=== PATIENT | female | born 1980 | race African-American/Black ===

== ENCOUNTER 2019-02-12 16:46 | Emergency (ER) | payer OTHER ==
[2019-02-12 16:55] VITALS: BP 149/96
--- OUTSIDE RECORDS SUMMARY | 2019-02-12 16:55 | XMS REPORT | Continuity of Care Document ---
:1980 External Reference #:[id number] Author Name Joan Atkinson MD (transmitted by agent of provider Jennifer Palacios) Address [address], [address] [place] [id number] Care Team Providers Name Role Phone Joan Atkinson M.D. 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 No Information Available Social History Type Date Description Comments Sex Unknown Tobacco Use Start: Unknown Never Smoked Cigarettes Smoking Status Reviewed: 12/22/18 Never Smoked Cigarettes Tobacco Use Start: Unknown Patient has never smoked Allergies, Adverse Reactions, Alerts Description No Information Available Medications Active Medications SIG Qnty Indications Ordering Date Provider Automatic Blood Pressure 1 adult cuff 1units I10 Joan Atkinson MD 2018 Monitor w/unit for Kit upper arm Hydrochlorothiazide 1 by mouth Unknown 25mg Tablets every day Hornell-28 1 pill daily Unknown 0.15-30mg-mcg Tablets Immunizations Description No Information Available Vital Signs Date Vital Result Comment 12/22/2018 9:53am Height 65.25 inches 5'5.25" Weight 139.50 lb Heart Rate 102 /min BP Systolic Sitting 138 mmHg Rue reg cuff BP Diastolic Sitting 94 mmHg Rue reg cuff O2 % BldC Oximetry 98 % BMI (Body Mass Index) 23.0 kg/m2 Results Description No Information Available Procedures Date Code Description Status 12/22/2018 96141 EKG Tracing & Interpretation Completed Medical Devices Description No Information Available Encounters Description No Information Available Assessments Date Code Description Provider 12/22/2018 I10 Essential (primary) hypertension Joan Atkinson MD 12/22/2018 L65.9 Nonscarring hair loss, unspecified Joan Atkinson MD 12/22/2018 E04.1 Nontoxic single thyroid nodule Joan Atkinson MD 12/22/2018 R42 Dizziness and giddiness Joan Atkinson MD Plan of Treatment Future Appointment(s):01/24/2019 8:40 am - Joan [facility] MD [facility] - Joan Atkinson MDI10 Essential (primary) hypertensionNew Medication:Automatic Blood Pressure Monitor - 1 adult cuff w/ unit for upper armComments:I encourage you to check your blood pressure 2 x/week , at different times of the day and keep a log for our review at the next visitFollow up:1 moL65.9 Nonscarring hair loss, unspecifiedComments:I will send you a letter with results of all normal, and we will contact you to discuss any akemdtjxaZ05.1 Nontoxic single thyroid [id number] Dizziness and giddinessComments :To further evaluate your complaint I am ordering blood work. Your EKG was normal except fpr slightlyfast rhythm (sinus tachycardia) Functional Status Description No Information Available Mental Status Description No Information Available Referrals Description No Information Available
--- OUTSIDE RECORDS SUMMARY | 2019-02-12 16:55 | XMS REPORT | Continuity of Care Document ---
:1980 External Reference #:[id number] Author Name Jeanie Mcnair N.P. (transmitted by agent of provider Cheyenne Valerio) Address [address], [place] [address] Care Team Providers Name Role Phone Joan Atkinson M.D. 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 Problems Description No Information Available Social History Type Date Description Comments Sex Unknown Tobacco Use Start: Unknown Never Smoked Cigarettes Smoking Status Reviewed: 02/05/19 Never Smoked Cigarettes ETOH Use Currently consumes 2 drinks a week alcohol Tobacco Use Start: Unknown Patient has never smoked Recreational Drug Use Denies Drug Use Exercise Type/Frequency Exercises regularly Allergies, Adverse Reactions, Alerts Description No Known Drug Allergies Medications Active Medications SIG Qnty Indications Ordering Date Provider Amlodipine Besylate 1 by mouth 30tabs I10 Joan Atkinson MD 01/24/2019 5mg Tablets every day Automatic Blood Pressure 1 adult cuff 1units I10 Joan Atkinson MD 2018 Monitor w/unit for Kit upper arm Hydrochlorothiazide 1 by mouth 90tabs Joan Atkinson MD 25mg Tablets every day Squires-28 1 po by mouth 28tabs Joan Atkinson MD 0.15-30mg-mcg Tablets daily Immunizations Description No Information Available Vital Signs Date Vital Result Comment 02/05/2019 4:15pm Height 65.25 inches 5'5.25" Weight 137.00 lb Heart Rate 85 /min BP Systolic 140 mmHg BP Diastolic 91 mmHg Body Temperature 97.9 F O2 % BldC Oximetry 99 % BMI (Body Mass Index) 22.6 kg/m2 01/24/2019 8:41am Height 65.25 inches 5'5.25" Weight 138.00 lb Heart Rate 107 /min BP Systolic 130 mmHg BP Diastolic 90 mmHg O2 % BldC Oximetry 97 % BMI (Body Mass Index) 22.8 kg/m2 Results Test Date Facility Test Result H/L Range Note Laboratory test 12/22/2018 [facility] Ferritin 33.0 ng/mL Normal 11-[address] [place] [address] [phone] Thyroid Panel 12/22/2018 [facility] Free T4 (Free 0.73 ng/dL Normal 0.61-1.12 DRIVE Thyroxine) [place] [address] [phone] Thyroxine 7.02 g/dL Normal 6.09-12.23 TSH (Thyroid Stim Horm) 1.55 mcIU/mL Normal 0.34-5.60 CBC No Diff 12/22/2018 [facility] White Blood 4.4 10^3/uL Normal 3.5-10.8 [place] [address] [phone] Red Blood Count 4.86 10^6/uL Normal 3.70-4.87 Hemoglobin 13.8 g/dL Normal 12.0-16.0 Hematocrit 41 % Normal 35-47 Mean Corpuscular Volume 83 fL Normal 80-97 Mean Corpuscular Hemoglobin 29 pg Normal 27-31 Mean Corpuscular HGB Conc 34 g/dL Normal 31-36 Red Cell Distribution Width 14 % Normal 10-15 Platelet Count 168 10^3/uL Normal 150-450 Mean Platelet Volume 10.3 fL Normal 7.4-10.4 Comp Metabolic 12/22/2018 [facility] Sodium 139 mmol/L Normal 135-[address] [place] [address] [phone] Potassium 3.5 mmol/L Normal 3.5-5.0 Chloride 104 mmol/L Normal 101-111 Co2 Carbon Dioxide 28 mmol/L Normal 22-32 Anion Gap 7 mmol/L Normal 2-11 Glucose 113 mg/dL High 70-100 Blood Urea Nitrogen 13 mg/dL Normal 6-24 Creatinine 0.97 mg/dL High 0.51-0.95 BUN/Creatinine Ratio 13.4 Normal 8-20 Calcium 9.3 mg/dL Normal 8.6-10.3 Total Protein 7.2 g/dL Normal 6.4-8.9 Albumin 4.3 g/dL Normal 3.2-5.2 Globulin 2.9 g/dL Normal 2-4 Albumin/Globulin Ratio 1.5 Normal 1-3 Total Bilirubin 0.40 mg/dL Normal 0.2-1.0 Alkaline Phosphatase 27 U/L Low 34-104 Alt 12 U/L Normal 7-52 Ast 13 U/L Normal 13-39 Egfr Non- 65.0 >60 Egfr 78.6 >60 1 Urinalysis Profile 12/22/2018 [facility] Urine Color Yellow [address] [place] [address] [phone] Urine Appearance Cloudy Urine Specific [place] 1.012 Normal 1.010-1.030 Urine pH 6.0 Normal 5-9 Urine Urobilinogen Negative Negative Urine Ketones Negative Negative Urine Protein Negative Negative Urine Leukocytes Negative Negative Urine Blood Negative Negative Urine Nitrite Negative Negative Urine Bilirubin Negative Negative Urine Glucose Negative Negative 1 Because ethnic data is not always readily available, this report includes an eGFR for both -Americans and non- Americans. The National Kidney Disease Education Program (NKDEP) does not endorse the use of the MDRD equation for patients that are not between the ages of 18 and 70, are , have extremes of body size, muscle mass, or nutritional status, or are non- or non-. According to the National Kidney Foundation, irrespective of diagnosis, the stage of the disease is based on the level of kidney function: Stage Description GFR(mL/min/1.73 m(2)) 1 Kidney damage with normal or decreased GFR 90 2 Kidney damage with mild decrease in GFR 60-89 3 Moderate decrease in GFR 30-59 4 Severe decrease in GFR 15-29 5 Kidney failure <15 (or dialysis) Procedures Date Code Description Status 12/22/2018 51730 EKG Tracing & Interpretation Completed Medical Devices Description No Information Available Encounters Type Date Location Provider Dx Diagnosis Office Visit 01/24/2019 Jarvis Atkinson MD I10 Essential ( primary) 8:40a Medicine - [facility] hypertension E04.1 Nontoxic single thyroid nodule Office Visit 12/22/2018 10:00a Jarvis Atkinson MD I10 Essential (primary) Medicine - [facility] hypertension L65.9 Nonscarring hair loss, unspecified E04.1 Nontoxic single thyroid nodule R42 Dizziness and giddiness R00.0 Tachycardia, unspecified Assessments Date Code Description Provider 02/05/2019 I10 Essential (primary) hypertension Jeanie Mcnair, N.P. 02/05/2019 R00.2 Palpitations Jeanie Mcnair N.P. 01/24/2019 I10 Essential (primary) hypertension Joan Atkinson MD 01/24/2019 E04.1 Nontoxic single thyroid nodule Joan Atkinson MD 12/22/2018 I10 Essential (primary) hypertension Joan Atkinson MD 12/22/2018 L65.9 Nonscarring hair loss, unspecified Joan Atkinson MD 12/22/2018 E04.1 Nontoxic single thyroid nodule Joan Atkinson MD 12/22/2018 R42 Dizziness and giddiness Joan Atkinson MD 12/22/2018 R00.0 Tachycardia, unspecified Joan Atkinson MD Plan of Treatment Future Appointment(s):08/01/2019 8:40 am - Joan Atkinson MD at [facility] Internal Medicine - [facility]02/26/2019 9:00 am - Nurse Visit A at [facility] Internal Medicine - [facility]02/05/2019 - Jeanie Mcnair N.Guillaume.I10 Essential (primary) hypertensionComments:For now, stay off the Hydrochlorothiazide. I have ordered blood work to be sure your potassium levelis in normal range and that you are not anemic.I would like you to check your blood pressure once daily, mix up the time of day.To get an accurate reading:Sit for 10 minutes, be sure both feet are on the ground, and have an empty bladder. The arm that you are checking needs to be at heart level and relaxed.I will check on you at the end of the week to see how your readings have been and we'll go fromthere.R00.2 Palpitations Functional Status Description No Information Available Mental Status Description No Information Available Referrals Refer to Reason for Referral Status Appt Date Angelic Crockett MD please evaluate pt for possible biopsy of multiple Sent large thyroid nodules [address] [place], [place] [address] [phone]
--- OUTSIDE RECORDS SUMMARY | 2019-02-12 16:55 | XMS REPORT | Continuity of Care Document ---
:1980 External Reference #:[id number] Author Name Joan Atkinson MD (transmitted by agent of provider Yadira Rivero) Address [address], [address] [place] [id number] Care Team Providers Name Role Phone Joan Atkinson M.D. 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 No Information Available Social History Type Date Description Comments Sex Unknown Tobacco Use Start: Unknown Never Smoked Cigarettes Smoking Status Reviewed: 01/24/19 Never Smoked Cigarettes ETOH Use Currently consumes [...] Joan Atkinson MD 25mg Tablets every day Marilu-28 1 po by mouth 28tabs Joan Atkinson MD 0.15-30mg-mcg Tablets daily Immunizations Description No Information Available Vital Signs Date Vital Result Comment 01/24/2019 8:41am Height 65.25 inches 5'5.25" Weight 138.00 lb Heart Rate 107 /min BP Systolic 130 mmHg BP Diastolic 90 mmHg O2 % BldC Oximetry 97 % BMI (Body Mass Index) 22.8 kg/m2 12/22/2018 9:53am Height 65.25 inches 5'5.25" Weight 139.50 lb Heart Rate 102 /min BP Systolic Sitting 138 mmHg Rue reg cuff BP Diastolic Sitting 94 mmHg Rue reg cuff O2 % BldC Oximetry 98 % BMI (Body Mass Index) 23.0 kg/m2 Results Test Date Facility Test Result H/L Range Note Laboratory test 12/22/2018 [facility] Ferritin 33.0 ng/mL Normal [address] [place] [address] [phone] Thyroid Panel 12/22/2018 [facility] Free T4 (Free 0.73 ng/dL Normal 0.61-1.12 DRIVE Thyroxine) [place] [address] [phone] Thyroxine 7.02 g/dL Normal 6.09-12.23 TSH (Thyroid Stim Horm) 1.55 mcIU/mL Normal 0.34-5.60 CBC No Diff 12/22/2018 [facility] White Blood 4.4 10^3/uL Normal 3.5-10.8 [place] [address] [phone] Red Blood Count 4.86 10^6/uL Normal 3.70-4.87 Hemoglobin 13.8 g/dL Normal 12.0-16.0 Hematocrit 41 % Normal 35-47 Mean Corpuscular Volume 83 fL Normal 80-97 Mean Corpuscular Hemoglobin 29 pg Normal 27-31 Mean Corpuscular HGB Conc 34 g/dL Normal 31-36 Red Cell Distribution Width 14 % Normal 10-15 Platelet Count 168 10^3/uL Normal 150-450 Mean Platelet Volume 10.3 fL Normal 7.4-10.4 Comp Metabolic 12/22/2018 [facility] Sodium 139 mmol/L Normal 135-[address] [place] [address] [phone] Potassium 3.5 mmol/L Normal 3.5-5.0 Chloride 104 [...] Egfr 78.6 >60 1 Urinalysis Profile 12/22/2018 [facility] Urine Color Yellow [address] [place] [address] [phone] Urine Appearance Cloudy Urine Specific [place] 1.012 Normal 1.010-1.030 Urine pH 6.0 Normal [...] dialysis) Procedures Date Code Description Status 12/22/2018 34651 EKG Tracing & Interpretation Completed Medical Devices Description No Information Available Encounters Type Date Location Provider Dx Diagnosis Office Visit 12/22/2018 [employer] [facility] Joan Atkinson MD I10 Essential ( primary) 10:00a Medicine - [facility] hypertension L65.9 Nonscarring hair loss, unspecified E04.1 Nontoxic single thyroid nodule R42 Dizziness and giddiness R00.0 Tachycardia, unspecified Assessments Date Code Description Provider 01/24/2019 I10 Essential (primary) hypertension Joan Atkinson [...] 8:40 am - Joan Atkinson MD at [facility] Internal Medicine - [facility]02/26/2019 9:00 am - Nurse Visit A at [facility] Internal Medicine - [facility]01/24/2019 - Joan Atkinson MDI10 Essential (primary) hypertensionNew Medication:Amlodipine Besylate 5 mg - 1 by mouth every dayComments:Your blood pressure is not at goal, therefore I am adding a new medication called amlodipine, to be taken with hydrochlorothiazide.Please return in 1 month for nurse visit to check the blood pressure is at goal on this new regimen. Then follow-up with me in 6 monthsFollow up:1 mo nurse visit BP check 6 mo HTNE04.1 Nontoxic single thyroid noduleReferral:Angelic Crockett MD, Surgery,General Functional Status Description No Information Available Mental Status Description No Information Available Referrals Refer to Dr Reason for Referral Status Appt Date Angelic Crockett MD please evaluate pt for possible biopsy of multiple Sent large thyroid nodules [address] [place], [place] [address] [phone]
--- NOTE | 2019-02-12 18:17 | UC ---
General HPI - HPI Summary HPI Summary: 39-year-old woman comes in with a chief complaint of panic attack. Patient reports that just prior to arrival she was at work when she was in a meeting when she felt anxious felt like everything was closing in and she had palpitations she felt short of breath. She left the meeting and then came here. Patient reports he's had multiple of these episodes since August 2018. She was living in [facility] in either August or September of this year and she had a similar episode after having an argument with her family. She reports that everything in the emergency department since Ryan Philip was related to her is normal. They gave her a single pill which helped relax her at that time. Shortly afterwards her and her moved here to [place]. In the last several months she's had several more of these episodes. She had one 3 days ago while at a meeting at work and her relates that she had an additional third episode within the last week. Patient reports she is going through a palpitation workup with her primary care doctor here in [place] and she's had a Holter monitor that was reported as normal is also had blood work that's been reported as normal. She is getting a thyroid biopsy scheduled for the next couple weeks due to a large thyroid gland. She reports she's been having sinus congestion that's been persistent and worsening for the last several months since she has been having some crusting in her eyes in the morning. No fevers or chills. Patient has been having headaches with these episodes. - History of Current Complaint Chief Complaint: UCDizziness Stated Complaint: DIZZINESS, LIGHTHEADED Time Seen by Provider: 02/12/19 17:24 Pain Intensity: 0 - Allergy/Home Medications Allergies/Adverse Reactions: Allergies Allergy/AdvReac Type Severity Reaction Status Date / Time No Known Allergies Allergy Verified 02/12/19 16:55 Home Medications: Home Medications amLODIPine TAB* [Norvasc 5 mg TAB*] 5 mg PO DAILY 02/12/19 [History Confirmed ] PMH/Surg Hx/FS Hx/Imm Hx Previously Healthy: Yes - ENLARGED THYROID - Surgical History Surgical History: Yes Surgery Procedure, Year, and Place: kidney stone, 2 c-sections - Family History Known Family History: Positive: Non-Contributory - Social History Alcohol Use: Weekly Substance Use Type: None Smoking Status (MU): Never Smoked Tobacco Review of Systems All Other Systems Reviewed And Are Negative: Yes Constitutional: Positive: Other - SEE HPI Skin: Positive: Negative Eyes: Positive: Drainage ENT: Positive: Nasal Discharge, Sinus Congestion Respiratory: Positive: Shortness Of Breath Cardiovascular: Positive: Palpitations Gastrointestinal: Positive: Negative Motor: Positive: Negative Neurovascular: Positive: Negative Musculoskeletal: Positive: Negative Neurological: Positive: Headache Psychological: Positive: Anxious Is Patient Immunocompromised?: No Physical Exam Triage Information Reviewed: Yes Appearance: No Pain Distress, Well-Nourished, Other: - Mildly anxious and occasionally tearful. Vital Signs: Initial Vital Signs Temp 99.6 F 02/12/19 16:51 Pulse 93 02/12/19 16:51 Resp 18 02/12/19 16:51 BP 149/96 02/12/19 16:51 Pulse Ox 100 02/12/19 16:51 Vital Signs Reviewed: Yes Eye Exam: Normal Eyes: Positive: Conjunctiva Clear ENT: Positive: Nasal congestion, TMs normal Neck: Positive: Supple, Other: - Enlarged thyroid gland anterior lower neck Respiratory: Positive: Lungs clear, Normal breath sounds, No respiratory distress Cardiovascular: Positive: RRR Musculoskeletal: Positive: Strength Intact, ROM Intact Neurological: Positive: Alert Psychological: Positive: Normal Response To Family, Age Appropriate Behavior Skin Exam: Normal Course/Dx - Course Course Of Treatment: In clinic initial temperature was 99.6 and then on recheck it was 100.2. With further discussion of symptoms we will treat for sinusitis with amoxicillin. She could also use saline nasal spray or Flonase nasal spray. For these recurrent episodes she is undergoing a workup with her primary care physician and she does have thyroid biopsy scheduled. EKG did not show any ischemic changes or irregular heartbeats. I did do a prescription for hydroxyzine to be used as needed and recommended that the patient follow-up with her regular physician tomorrow. I also recommended staying out of work until she feels improved. I did end up riding her 2 different work notes one to return to work on February 15, 2019 and the other to return to work on February 19, 2019 based on how she is feeling. Patient reevaluated if worse or any questions or concerns. - Diagnoses Provider Diagnosis: Heart palpitations, Anxiety, Sinusitis, Fever Discharge ED - Sign-Out/Discharge Documenting (check all that apply): Patient Departure All imaging exams completed and their final reports reviewed: No Studies - Discharge Plan Condition: Stable Disposition: HOME Prescriptions: Amoxicillin PO (*) [Amoxicillin 875 MG (*)] 875 mg PO BID #20 tab hydrOXYzine HCL TAB* [Atarax TAB 50 MG *] 50 mg PO QID PRN #20 tab PRN Reason: Anxiety Patient Education Materials: Heart Palpitations (ED), Sinusitis (ED), Fever in Adults (ED), Anxiety (ED) Forms: *Work Release Referrals: Joan Atkinson MD [Primary Care Provider] - Additional Instructions: FOLLOW UP WITH YOUR DOCTOR. GET RECHECKED SOONER IF YOUR CONDITION WORSENS OR ANY QUESTIONS OR CONCERNS. - Billing Disposition and Condition Condition: STABLE Disposition: Home
== END 2019-02-12 18:30 | disposition home or self-care (01) ==
LOC: UCEAST 16:46
DX: J32.9 Chronic sinusitis, unspecified (principal); F41.9 Anxiety disorder, unspecified; R50.9 Fever, unspecified; R00.2 Palpitations; R09.89 Other specified symptoms and signs involving the circulatory and respiratory systems; R51 Headache
CPT/HCPCS: 99212; G0463

== ENCOUNTER 2019-04-22 08:54 | Emergency (ER) | payer OTHER ==
--- OUTSIDE RECORDS SUMMARY | 2019-04-22 08:59 | XMS REPORT | Continuity of Care Document ---
:1980 External Reference #:[id number] Author Name Waqas Sawant NP (transmitted by agent of provider Jennifer Gonsalves) Address [address] [facility], [address] [place] [id number] Care Team Providers Name Role Phone Joan Atkinson M.D. - Family Medicine Care Team Information Nurse Companion Problems Active Problems Provider Date Essential hypertension Waqas Sawant NP Onset: 03/28/2019 Social History Type Date Description Comments Sex Unknown Tobacco Use Start: Unknown Never Smoked Cigarettes Smoking Status Reviewed: 03/28/19 Never Smoked Cigarettes ETOH Use Currently consumes 2 drinks a week alcohol Tobacco Use Start: Unknown Patient has never smoked Recreational Drug Use Denies Drug Use Exercise Type/Frequency Exercises regularly Allergies, Adverse Reactions, Alerts Description No Known Drug Allergies Medications Active Medications SIG Qnty Indications Ordering Provider Date Amlodipine Besylate 1 by mouth every 30tabs I10 Waqas Sawant NP 03/28/2019 day 10mg Tablets Alprazolam 1/2-1 tab by 20tabs F41.9 Waqas Sawant NP 03/28/2019 0.25mg mouth up to two Tablets times daily as needed for anxiety Fluticasone 2 sprays each 16units J30.89 Waqas Sawant NP 03/28/2019 Propionate nostril qd. 50mcg/Act Suspension Automatic Blood 1 adult cuff 1units I10 Joan Atkinson MD 12/22/2018 Pressure Monitor w/unit for upper Kit arm [place]-28 1 po by mouth 28tabs Joan Atkinson MD 0.15-30mg-mcg daily Tablets History Medications Amlodipine Besylate 11/2 by mouth 30tabs I10 Waqas Sawant NP 01/24/2019 - 5mg every day 03/28/2019 Tablets Immunizations Description No Information Available Vital Signs Date Vital Result Comment 03/28/2019 8:49am Height 67 inches 5'7" Weight 138.00 lb Heart Rate 88 /min BP Systolic 134 mmHg BP Diastolic 87 mmHg Body Temperature 97.9 F O2 % BldC Oximetry 98 % BMI (Body Mass Index) 21.6 kg/m2 02/26/2019 9:07am Heart Rate 101 /min BP Systolic Sitting 130 mmHg BP Diastolic Sitting 90 mmHg O2 % BldC Oximetry 99 % Results Test Acquired Date Facility Test Result H/L Range Note Cytology 02/26/2019 [facility] Cytology SEE RESULT 1 [employer] 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 [address] [place] [address] [phone] PDFReport SEE IMAGE Lipid Profile 02/26/2019 [facility] Triglycerides 86 mg/dL 2 (Trig/Chol/HDL) [address] [place] [address] [phone] Cholesterol 151 mg/dL 3 HDL Cholesterol 50.9 mg/dL 4 LDL Cholesterol 83 mg/dL 5 Order 02/07/2019 [facility] Holter Monitor <pending> [address] [place] [address] [phone] CBC Auto 02/05/2019 [facility] White Blood 5.7 10^3/uL Normal 3.5-[address] Count .8 [place] [address] [phone] Red Blood Count 4.87 10^6/uL Normal 3.70-4.87 Hemoglobin 13.4 g/dL Normal 12.0-16.0 Hematocrit 40 % Normal 35-47 Mean Corpuscular Volume 82 fL Normal 80-97 Mean Corpuscular Hemoglobin 28 pg Normal 27-31 Mean Corpuscular HGB Conc 33 g/dL Normal 31-36 Red Cell Distribution Width 14 % Normal 10-15 Platelet Count 149 10^3/uL Low 150-450 Mean Platelet Volume 10.4 fL Normal 7.4-10.4 Abs Neutrophils 2.6 10^3/uL Normal 1.5-7.7 Abs Lymphocytes 2.4 10^3/uL Normal 1.0-4.8 Abs Monocytes 0.4 10^3/uL Normal 0-0.8 Abs Eosinophils 0.3 10^3/uL Normal 0-0.6 Abs Basophils 0.1 10^3/uL Normal 0-0.2 Abs Nucleated RBC 0.0 10^3/uL Granulocyte % 45.5 % Lymphocyte % 42.6 % Monocyte % 6.4 % Eosinophil % 4.5 % Basophil % 1.0 % Nucleated Red Blood Cells % 0.3 Basic Metabolic 02/05/2019 [facility] Sodium 134 mmol/L Low 135-[address] [place] [address] [phone] Potassium 4.2 mmol/L Normal 3.5-5.0 Chloride 101 mmol/L Normal 101-111 Co2 Carbon Dioxide 26 mmol/L Normal 22-32 Anion Gap 7 mmol/L Normal 2-11 Glucose 84 mg/dL Normal 70-100 Blood Urea Nitrogen 12 mg/dL Normal 6-24 Creatinine 0.80 mg/dL Normal 0.51-0.95 BUN/Creatinine Ratio 15.0 Normal 8-20 Calcium 9.3 mg/dL Normal 8.6-10.3 Egfr Non- 80.7 >60 Egfr 97.7 >60 6 Laboratory test 12/22/2018 [facility] Ferritin 33.0 Normal 11- [address] ng/[place] [address] [phone] Thyroid Panel 12/22/2018 [facility] Free T4 0.73 Normal 0.61- 1.[address] (Free ng/[place] [address] Thyroxine) [phone] Thyroxine 7.02 g/dL Normal 6.09-12.23 TSH (Thyroid Stim Horm) 1.55 mcIU/mL Normal 0.34-5.60 CBC No Diff 12/22/2018 [facility] White Blood 4.4 10^3/uL Normal 3.5-10.[address] [place] [address] [phone] Red Blood Count 4.86 10^6/uL Normal 3.70-4.87 Hemoglobin 13.8 g/dL Normal 12.0-16.0 Hematocrit 41 % Normal 35-47 Mean Corpuscular Volume 83 fL Normal 80-97 Mean Corpuscular Hemoglobin 29 pg Normal 27-31 Mean Corpuscular HGB Conc 34 g/dL Normal 31-36 Red Cell Distribution Width 14 % Normal 10-15 Platelet Count 168 10^3/uL Normal 150-450 Mean Platelet Volume 10.3 fL Normal 7.4-10.4 Comp Metabolic 12/22/2018 [facility] Sodium 139 mmol/L Normal 135-145 Panel [address] [place] [address] [phone] Potassium 3.5 mmol/L Normal 3.5-5.0 Chloride 104 [...] Egfr Non- 65.0 >60 Egfr 78.6 >60 7 Urinalysis Profile 12/22/2018 [facility] Urine Color Yellow [address] [place] [address] [phone] Urine Appearance Cloudy Urine Specific [place] 1.012 Normal 1.010-1.030 Urine pH 6.0 Normal 5-9 Urine Urobilinogen Negative Negative Urine Ketones Negative Negative Urine Protein Negative Negative Urine Leukocytes Negative Negative Urine Blood Negative Negative Urine Nitrite Negative Negative Urine Bilirubin Negative Negative Urine Glucose Negative Negative 1 SEE RESULT BELOW Name: RAVI SALGADO Augustus : [address]: Angelic Crockett MD Acct: [id number] Unit: [id number] AGE: 39 Location: Re02/26/19 SEX: F Status: REG REF SPEC: [id number] CARLOS: 02/26/19-1305 [facility] DR: Angelic Crockett MD REQ: [id number] RECD: 02/26/19 STATUS: BISI SHERMAN DR: Alejo Iyer MD _ ORDERED: FNA-IMG GUID BX, CYTO ADEQ- P3 FINAL DIAGNOSIS 1. Thyroid, right, ultrasound guided fine needle aspiration: --Benign thyroid nodule, involutional type ([place] Class II). 2. Thyroid, left, ultrasound guided fine needle aspiration: --Benign thyroid nodule, involutional type ([place] Class II). 3. Thyroid, isthmus, ultrasound guided fine needle aspiration: --Benign thyroid nodule, involutional type ([place] Class II). 1. The specimen demonstrates moderate watery proteinaceous fluid, a moderate amount of benign appearing follicular epithelium arranged in uniform sheets, medium sized follicles and only occasional small groups. Abundant pigmented and non-pigmented macrophages are seen in the background. No features of papillary carcinoma are seen. In this clinical setting the risk of malignancy is less than 3%. Clinical management of this thyroid nodule should be based on clinical CONTINUED ON NEXT PAGE DEPARTMENT OF PATHOLOGY, [address] [place] [address] Aldo Morgan M.D. Director [facility] # [id number] and radiographic features as well as the above findings. 2. The specimen demonstrates abundant watery proteinaceous fluid, a modest amount of benign appearing follicular epithelium arranged in uniform sheets, medium sized follicles and only occasional small groups. Abundant pigmented and non-pigmented macrophages are seen in the background. No features of papillary carcinoma are seen. In this clinical setting the risk of malignancy is less than 3%. Clinical management of this thyroid nodule should be based on clinical and radiographic features as well as the above findings. 3. The specimen demonstrates modest watery proteinaceous fluid, an abundant amount of benign appearing follicular epithelium arranged in uniform sheets, medium sized follicles and only occasional small groups. Abundant pigmented and non-pigmented macrophages are seen in the background. No features of papillary carcinoma are seen. In this clinical setting the risk of malignancy is less than 3%. Clinical management of this thyroid nodule should be based on clinical and radiographic features as well as the above findings. SPECIMEN(S) RECEIVED #1. THYROID RIGHT - US GUIDED RIGHT THYROIRD FINE NEEDLE ASPIRATION, #2. THYROID LEFT - US GUIDED LEFT THYROID NODULE., #3. THYROID ISTHMUS - US GUIDED ISTHMUS FINE NEEDLE ASOIRATION CLINICAL HISTORY #1) 1.3 x 0.7 x 0.8 cm right thyroid nodule. #2) 4.0 x 301 x 3.3 cm left thyroid nodule. #3) 2.3 x 2.1 x 2.0 cm isthmus nodule. IMMEDIATE INTERPRETATION 1. Pass 1-adequate 2. Pass 1-adequate 3. Pass 1-adequate CONTINUED ON NEXT PAGE DEPARTMENT OF PATHOLOGY, [address] [place] [address] Aldo Morgan M.D. Director [facility] # [id number] GROSS DESCRIPTION #1) Ultrasound guided, fine needle aspiration x 1 pass with 1 alcohol fixed slide(s). #2) Ultrasound guided, fine needle aspiration x 1 pass with 2 alcohol fixed slide(s). #3) Ultrasound guided, fine needle aspiration x 1 pass with 3 alcohol fixed slide(s). Signed by and Reported on: Arianna Castillo MD 02/27/19 1604 END OF REPORT DEPARTMENT OF PATHOLOGY, [address] [place] [address] Aldo Morgan M.D. Director [facility] # [id number] 2 Desirable: <150 Borderline High: 150-199 High: 200-499 Very High: >500 3 Desirable: <200 Borderline High: 200-239 High: >239 4 Low: <40 Desirable: 40-60 High: >60 5 Desirable: <100 Near Optimal: 100-129 Borderline High: 130-159 High: 160-189 Very High: >189 6 Because ethnic data is not always readily [...] 15-29 5 Kidney failure <15 (or dialysis) 7 Because ethnic data is not always readily [...] (or dialysis) Procedures Date Code Description Status 02/07/2019 12722 ECG Monitor/Recording W/Visual Superimposition Scanning Completed 12/22/2018 56861 EKG Tracing & Interpretation Completed Medical Devices Description No Information Available Encounters Type Date Location Provider Dx Diagnosis Office Visit 02/06/2019 Surgical Angelic Crockett MD E04.2 Nontoxic 12:45p [facility] multinodular goiter Office Visit 02/05/2019 [facility] Internal Jeanie Mcnair, I10 Essential (primary ) 4:00p Medicine - Ccmob N.P. hypertension R00.2 Palpitations Office Visit 01/24/2019 8:40a [facility] Internal Joan Atkinson MD I10 Essential (primary) Medicine - Ccmob hypertension E04.1 Nontoxic single thyroid nodule Office Visit 12/22/2018 10:00a [facility] Internal Joan Atkinson MD I10 Essential (primary) Medicine - Ccmob hypertension L65.9 Nonscarring hair loss, unspecified E04.1 Nontoxic single thyroid nodule R42 Dizziness and giddiness R00.0 Tachycardia, unspecified Assessments Date Code Description Provider 03/28/2019 I10 Essential (primary) hypertension Waqas Sawant NP 03/28/2019 F41.9 Anxiety disorder, unspecified Waqas Sawant NP 03/28/2019 J30.89 Other allergic rhinitis Waqas Sawant NP 02/26/2019 I10 Essential (primary) hypertension Nurse Visit A 02/08/2019 R00.2 Palpitations Im Nurse Holter Monitor 02/07/2019 R00.2 Palpitations Im Nurse Holter Monitor 02/06/2019 E04.2 Nontoxic multinodular goiter Angelic Crockett MD 02/05/2019 I10 Essential (primary) hypertension Jeanie Mcnair, N.P. 02/05/2019 R00.2 Palpitations Jeanie Mcnair, N.P. 01/24/2019 I10 Essential (primary) hypertension Joan Atkinson MD 01/24/2019 E04.1 Nontoxic single thyroid nodule Joan Atkinson MD 12/22/2018 I10 Essential (primary) hypertension Joan Atkinson MD 12/22/2018 L65.9 Nonscarring hair loss, unspecified Joan Atkinson MD 12/22/2018 E04.1 Nontoxic single thyroid nodule Joan Atkinson MD 12/22/2018 R42 Dizziness and giddiness Joan Atkinson MD 12/22/2018 R00.0 Tachycardia, unspecified Joan Atkinson MD Plan of Treatment Future Appointment(s):04/25/2019 10:20 am - [facility] am - Rosemarie Braxton LCSW [facility] - Waqas Sawant NPI10 Essential (primary) hypertensionNew Medication:Amlodipine Besylate 10 mg - 1 by mouth every dayComments:I recommend increasing the amlodipine to the 10mg. Continue to check your blood pressure frequently.Follow up:4 aqaarQ61.9 Anxiety disorder, unspecifiedNew Medication:Alprazolam 0.25 mg - 1/2-1 tab by mouth up to two times daily as needed for anxietyComments:I have ordered the xanax that we discussed.J30.89 Other allergic rhinitisNew Medication:Fluticasone Propionate 50 mcg/Act - 2 sprays each nostril qd. Functional Status Description No Information Available Mental Status Description No Information Available Referrals Refer to Reason for Referral Status Appt Date Rosemarie Braxton LCSW Patient with anxiety, referred for counseling. Sent 02/21 Thank you for seeing this very pleasant patient. [address], [place] [address] [phone] Angelic Crockett MD please evaluate pt for possible biopsy of multiple Sent large thyroid nodules [address] [place], [place] [address] [phone]
--- OUTSIDE RECORDS SUMMARY | 2019-04-22 08:59 | XMS REPORT | Continuity of Care Document ---
:1980 External Reference #:[id number] Author Name Jeanie Mcnair NJyoti (transmitted by agent of provider Cheyenne Valerio) Address [address] [facility], [place] [address] Care Team Providers Name Role Phone Joan Atkinson M.D. - Family Medicine Care Team Information Pediatric Surgeon [phone] Problems Active Problems Provider Date Essential hypertension Waqas Sawant NP Onset: 03/28/2019 Social History Type Date Description Comments Sex Unknown Tobacco Use Start: Unknown Never Smoked Cigarettes Smoking Status Reviewed: 04/10/19 Never Smoked Cigarettes ETOH Use Currently consumes 2 drinks a week alcohol Tobacco Use Start: Unknown Patient has never smoked Recreational Drug Use Denies Drug Use Exercise Type/Frequency Exercises regularly Allergies, Adverse Reactions, Alerts Description No Known Drug Allergies Medications Active Medications SIG Qnty Indications Ordering Provider Date Lisinopril 1 by mouth every 30tabs I10 Jeanie Mcnair, 04/10/2019 20mg Tablets day N.P. Alprazolam 1/2-1 tab by 20tabs F41.9 Waqas Sawant NP 03/28/2019 0.25mg mouth up to two Tablets times daily as needed for anxiety Fluticasone Instill 2 Sprays 48units J30.89 Waqas Sawant NP 03/28/2019 Propionate Into Each 50mcg/Act Nostril Once Suspension Daily Automatic Blood 1 adult cuff 1units I10 Joan Atkinson MD 12/22/2018 Pressure Monitor w/unit for upper Kit arm [place]-28 1 po by mouth 28tabs Joan Atkinson MD 0.15-30mg-mcg daily Tablets History Medications Amlodipine Besylate Take 1 Tablet By 90tabs I10 Waqas Sawant NP 03/28/2019 - Mouth Once Daily 04/10/2019 10mg Tablets Amlodipine Besylate 02/17 by mouth 30tabs I10 Waqas Sawant NP 01/24/2019 - 5mg every day 03/28/2019 Tablets Immunizations Description No Information Available Vital Signs Date Vital Result Comment 04/10/2019 9:08am Height 67 inches 5'7" Weight 134.38 lb Heart Rate 96 /min BP Systolic Sitting 142 mmHg BP Diastolic Sitting 84 mmHg Body Temperature 98.1 F O2 % BldC Oximetry 97 % BMI (Body Mass Index) 21.0 kg/m2 03/28/2019 8:49am Height 67 inches 5'7" Weight 138.00 lb Heart Rate 88 /min BP Systolic 134 mmHg BP Diastolic 87 mmHg Body Temperature 97.9 F O2 % BldC Oximetry 98 % BMI (Body Mass Index) 21.6 kg/m2 Results Test Acquired Date Facility Test Result H/L Range Note Cytology 02/26/2019 [facility] Cytology SEE RESULT 1 Non-Bridge Crew Member [address] [place] [address] [phone] PDFReport SEE IMAGE Lipid Profile 02/26/2019 [facility] Triglycerides 86 mg/dL 2 (Trig/Chol/HDL) [address] [place] [address] [phone] Cholesterol 151 mg/dL 3 HDL Cholesterol 50.9 mg/dL 4 LDL Cholesterol 83 mg/dL 5 Order 02/07/2019 [facility] Holter Monitor <pending> [address] [place] [address] [phone] CBC Auto 02/05/2019 [facility] White Blood 5.7 10^3/uL Normal 3.5-[address] Count .8 [place] [address] [phone] Red Blood Count 4.87 10^6/uL Normal 3.70-4.87 [...] Blood Cells % 0.3 Basic Metabolic 02/05/2019 [facility] Sodium 134 mmol/L Low 135-[address] [place] [address] [phone] Potassium 4.2 mmol/L Normal 3.5-5.0 Chloride 101 mmol/L Normal 101-111 Co2 Carbon Dioxide 26 mmol/L Normal 22-32 Anion Gap 7 mmol/L Normal 2-11 Glucose 84 mg/dL Normal 70-100 Blood Urea Nitrogen 12 mg/dL Normal 6-24 Creatinine 0.80 mg/dL Normal 0.51-0.95 BUN/Creatinine Ratio 15.0 Normal 8-20 Calcium 9.3 mg/dL Normal 8.6-10.3 Egfr Non- 80.7 >60 Egfr 97.7 >60 6 Laboratory test 12/22/2018 [facility] Ferritin 33.0 Normal 11- [address] ng/[place] [address] [phone] Thyroid Panel 12/22/2018 [facility] Free T4 0.73 Normal 0.61- 1.[address] (Free ng/[place] [address] Thyroxine) [phone] Thyroxine 7.02 g/dL Normal 6.09-12.23 TSH (Thyroid Stim Horm) 1.55 mcIU/mL Normal 0.34-5.60 CBC No Diff 12/22/2018 [facility] White Blood 4.4 10^3/uL Normal 3.5-10.[address] [place] [address] [phone] Red Blood Count 4.86 10^6/uL Normal 3.70-4.87 Hemoglobin 13.8 g/dL Normal 12.0-16.0 Hematocrit 41 % Normal 35-47 Mean Corpuscular Volume 83 fL Normal 80-97 Mean Corpuscular Hemoglobin 29 pg Normal 27-31 Mean Corpuscular HGB Conc 34 g/dL Normal 31-36 Red Cell Distribution Width 14 % Normal 10-15 Platelet Count 168 10^3/uL Normal 150-450 Mean Platelet Volume 10.3 fL Normal 7.4-10.4 Comp Metabolic 12/22/2018 [facility] Sodium 139 mmol/L Normal 135-145 Panel [address] [place] [address] [phone] Potassium 3.5 mmol/L Normal 3.5-5.0 Chloride 104 [...] Egfr 78.6 >60 7 Urinalysis Profile 12/22/2018 [facility] Urine Color Yellow [address] [place] [address] [phone] Urine Appearance Cloudy Urine Specific [place] 1.012 Normal 1.010-1.030 Urine pH 6.0 Normal 5-9 Urine Urobilinogen Negative Negative Urine Ketones Negative Negative Urine Protein Negative Negative Urine Leukocytes Negative Negative Urine Blood Negative Negative Urine Nitrite Negative Negative Urine Bilirubin Negative Negative Urine Glucose Negative Negative 1 SEE RESULT BELOW Name: RAVI SALGADO : [address]: Angelic Crockett MD Acct: [id number] Unit: [id number] AGE: 39 Location: SP Re02/26/19 SEX: F Status: REG REF SPEC: [id number] CARLOS: 02/26/19-[address] [facility] DR: Angelic Crockett MD REQ: [id number] RECD: 02/26/19 STATUS: BISI SHERMAN DR: Alejo Iyer MD _ ORDERED: FNA-IMG GUID BX, CYTO ADEQ- FINAL DIAGNOSIS 1. Thyroid, right, ultrasound guided fine needle aspiration: --Benign thyroid nodule, involutional type ([place] Class II). 2. Thyroid, left, ultrasound guided fine needle aspiration: --Benign thyroid nodule, involutional type ([place] Class II). 3. Thyroid, isthmus, ultrasound guided fine needle aspiration: --Benign thyroid nodule, involutional type ([place] Class II). 1. The specimen demonstrates moderate [...] CONTINUED ON NEXT PAGE DEPARTMENT OF PATHOLOGY, [address] [place] [address] Aldo Mrogan M.D. Director [facility] # [id number] and radiographic features as well as the [...] CONTINUED ON NEXT PAGE DEPARTMENT OF PATHOLOGY, [address] [place] [address] Aldo Morgan M.D. Director [facility] # [id number] GROSS DESCRIPTION #1) Ultrasound guided, fine needle aspiration x 1 pass with 1 alcohol fixed slide(s). #2) Ultrasound guided, fine needle aspiration x 1 pass with 2 alcohol fixed slide(s). #3) Ultrasound guided, fine needle aspiration x 1 pass with 3 alcohol fixed slide(s). Signed by and Reported on: Arianna Castillo MD 02/27/19 3834 END OF REPORT DEPARTMENT OF PATHOLOGY, [address] [place] [address] Aldo Morgan M.D. Director [facility] # [id number] 2 Desirable: <150 Borderline High: 150-199 High: [...] dialysis) Procedures Date Code Description Status 02/07/2019 32486 ECG Monitor/Recording W/Visual Superimposition Scanning Completed 12/22/2018 37485 EKG Tracing & Interpretation Completed Medical Devices Description No Information Available Encounters Type Date Location Provider Dx Diagnosis Office Visit 03/28/2019 [facility] Internal Waqas Sawant NP I10 Essential (primary ) 8:40a Medicine - Ccmob hypertension F41.9 Anxiety disorder, unspecified J30.89 Other allergic rhinitis Office Visit 02/06/2019 12:45p Surgical Angelic Crockett MD E04.2 Nontoxic [facility] multinodular goiter Office Visit 02/05/2019 4:00p [facility] Internal Jeanie Mcnair, I10 Essential Medicine - Ccmob N.P. (primary) hypertension R00.2 Palpitations Office Visit 01/24/2019 8:40a [facility] Joan Atkinson MD I10 Essential (primary) Medicine - Ccmob hypertension E04.1 Nontoxic single thyroid nodule Office Visit 12/22/2018 10:00a [facility] Internal Joan Atkinson MD I10 Essential (primary) Medicine - Ccmob hypertension L65.9 Nonscarring hair loss, unspecified E04.1 Nontoxic single thyroid nodule R42 Dizziness and giddiness R00.0 Tachycardia, unspecified Assessments Date Code Description Provider 04/10/2019 I10 Essential (primary) hypertension Jeanie Mcnair, N.P. 03/28/2019 I10 Essential (primary) hypertension Waqas Sawant [...] 10:20 am - [facility] - Rose[facility] LCS[facility] - Jeanie Mcnair, N.P.I10 Essential (primary) hypertensionNew Medication:Lisinopril 20 mg - 1 by mouth every dayComments:For your high blood pressure: Stop taking the Amlodipine. I have prescribed Lisinopril 20 mg. Take 1 tablet daily.I would like you to monitor your blood pressure at home. Functional Status Description No Information Available Mental Status Description No Information Available Referrals Refer to Reason for Referral Status Appt Date Rosemarie Braxton LCSW Patient with anxiety, referred for counseling. Sent 02/21 Thank you for seeing this very pleasant patient. [address], [place] [address] [phone] Angelic Crockett MD please evaluate pt for possible biopsy of multiple Sent large thyroid nodules [address] [place], [place] [address] [phone]
[2019-04-22 09:07] VITALS: BP 134/94
--- NOTE | 2019-04-22 09:30 | ED ---
HPI Febrile Illness - HPI Summary HPI Summary: 39 yo p/w f/c/bodyaches and cold sx associated with nausea x 2-3 days, cough is worsening - History of Current Complaint Chief Complaint: UCRespiratory Time Seen by Provider: 04/22/19 09:12 Hx Obtained From: Patient Hx Last Menstrual Period: current Onset/Duration: Started Days Ago Timing: Lasting Days Initial Severity: Moderate Current Severity: Moderate Pain Intensity: 0 - Allergy/Home Medications Allergies/Adverse Reactions: Allergies Allergy/AdvReac Type Severity Reaction Status Date / Time No Known Allergies Allergy Verified 02/20/19 15:45 Home Medications: Home Medications Lisinopril TAB* [Prinivil TAB 5 MG*] 5 mg PO DAILY 04/22/19 [History Confirmed 04/22/19] PMH/Surg Hx/FS Hx/Imm Hx Previously Healthy: Yes Cardiovascular History: Reports: Hx Hypertension - Surgical History Surgery Procedure, Year, and Place: kidney stone, 2 c-sections Infectious Disease History: No Infectious Disease History: Denies: Traveled Outside the [place] in Last 30 Days - Family History Known Family History: Positive: Non-Contributory - Social History Alcohol Use: Occasionally Substance Use Type: Reports: None Smoking Status (MU): Never Smoked Tobacco Review of Systems Positive: Fever, Chills Eyes: Negative ENT: Negative Cardiovascular: Negative Positive: Cough Gastrointestinal: Negative Genitourinary: Negative Musculoskeletal: Negative Skin: Negative Neurological: Negative Psychological: Normal All Other Systems Reviewed And Are Negative: Yes Physical Exam - Summary Physical Exam Summary: Vital Signs Reviewed: Yes Eye Exam: Normal Eyes: Positive: Conjunctiva Clear ENT: Positive: Normal ENT inspection Neck: Positive: Supple Respiratory Exam: Normal Respiratory: Positive: Lungs clear, Normal breath sounds, Neg rhonchi or wheezes Cardiovascular Exam: Normal Cardiovascular: Positive: RRR Abdomen: NT/ND Musculoskeletal Exam: Normal Neurological Exam: Normal Psychological Exam: Normal Skin Exam: Normal Vital Signs On Initial Exam: Initial Vitals Temp Pulse Resp BP Pulse Ox 37.1 C 124 16 134/94 100 04/22/19 09:02 04/22/19 09:02 04/22/19 09:02 04/22/19 09:02 04/22/19 09:02 Diagnostics - Vital Signs Vital Signs Temp Pulse Resp BP Pulse Ox 04/22/19 09:02 37.1 C 124 16 134/94 100 - Laboratory Lab Statement: Any lab studies that have been ordered have been reviewed, and results considered in the medical decision making process. Course/Dx - Course Assessment/Plan: impressive for flu-like illness, will start tamiflu and sx meds - Diagnoses Provider Diagnoses: Systemic viral illness, Cough Discharge ED - Sign-Out/Discharge Documenting (check all that apply): Patient Departure All imaging exams completed and their final reports reviewed: No Studies - Discharge Plan Condition: Stable Disposition: HOME Prescriptions: Naproxen [Naproxen 500 mg tab] 500 mg PO BID 10 Days #20 tablet Ondansetron ODT TAB* [Zofran 4 MG Odt TAB*] 4 mg PO Q6H PRN 5 Days #20 tab.odt PRN Reason: Nausea Oseltamivir CAP* [Tamiflu CAP*] 75 mg PO BID 5 Days #10 cap Promethazine/Dextromethorphan [Promethazine-Dm Solution] 5 ml PO Q6H PRN 5 Days #200 syrup PRN Reason: Cough Patient Education Materials: Viral Syndrome (ED) Referrals: Joan Atkinson MD [Primary Care Provider] - - Billing Disposition and Condition Condition: STABLE Disposition: Home
[2019-04-22 10:02] LABS: Influenza A Molecular POSITIVE (Negative)
== END 2019-04-22 10:02 | disposition home or self-care (01) ==
LOC: UCEAST 08:54
DX: B34.9 Viral infection, unspecified (principal); R05 Cough; I10 Essential (primary) hypertension; R52 Pain, unspecified; R11.0 Nausea; Z79.899 Other long term (current) drug therapy
CPT/HCPCS: 99212; G0463